=== PATIENT | male | born 1980 | race Caucasian/White ===

== ENCOUNTER 2020-01-13 09:01 | Emergency (ER) | payer MEDICARE, MEDICAID, SELFPAY ==
--- NOTE | 2020-01-13 | XR_ITS ---
EXAMINATION: XR TOES, RIGHT CLINICAL INFORMATION: Right fourth toe pain status-post injury. COMPARISON: None TECHNIQUE: Frontal, oblique and lateral views of the right toes were obtained. FINDINGS: Bony alignment and mineralization are normal. There is a small avulsion fragment arising from the dorsal medial aspect of the base of the fourth distal phalanx. There is mild associated soft tissue swelling. No soft tissue gas or foreign body is seen. IMPRESSION: A small avulsion fracture is seen arising from the dorsal medial aspect of the right fourth toe distal phalanx. There is mild associated soft tissue swelling.
[2020-01-13 09:29] VITALS: BP 134/71; PULSE 82; RESP 16; TEMP 36.6; O2SAT 98; BMI 25.1
--- NOTE | 2020-01-13 09:38 | ED_ITS ---
HPI - Extremity Injury (Lower) General Chief Complaint: Extremity Injury, Lower Stated Complaint: R FOOT PAIN s/p kicked pole while playing [employer] Do Time Seen by Provider: 01/13/20 09:36 Source: patient, RN notes reviewed and old records reviewed Mode of arrival: ambulatory Limitations: no limitations and other History of Present Illness Onset (ago): day(s) (2) Injury: Right: foot (r 4th toe) Type of Injury: blunt Place: home Severity: moderate Severity scale (1-10): 6 Relieving factors: nothing Exacerbating factors: weight bearing, movement and palpation Context: direct blow Associated symptoms: swelling and able to partially bear weight Other symptoms: none Related Data Previous Rx's Medication Instructions Recorded ibuprofen 800 mg PO Q8H PRN #14 tab 01/13/20 Allergies Allergy/AdvReac Type Severity Reaction Status Date / Time No Known Allergies Allergy Verified 01/13/20 09:56 Review of Systems Review of Systems: Yes all other systems are reviewed and are negative Constitutional: Constitutional: Reports as per HPI Eyes: Eyes: Reports as per HPI ENT: Reports as per HPI Cardiovascular: Cardiovascular: Reports as per HPI Respiratory: Respiratory: Reports as per HPI Gastrointestinal: Gastrointestinal: Reports as per HPI Genitourinary: Genitourinary: Reports as per HPI Musculoskeletal: Musculoskeletal: Reports abnormal gait (limp c r foot due to pain), Denies deformity, Reports joint swelling (r 4th toe ), Denies loss of height, Denies muscle weakness, Denies numbness, Denies radiating pain into limb and Denies tingling Integumentary/Breasts: Skin/Breast: Reports as per HPI Neurologic: Reports as per HPI, Denies numbness and Denies tingling Psychiatric: Psychiatric: Reports as per HPI Endocrine: Endocrine: Reports as per HPI Hematologic/Lymphatic: Hematologic/Lymphatic: Reports as per HPI Allergic/Immunologic: Allergic/Immunologic: Reports as per HPI PMF Past Medical History Medical History (Updated 01/13/20 @ 12:58 by LEILA Fiore) No known health problems Surgical History (Updated 01/13/20 @ 10:34 by LEILA Fiore) History of thumb surgery Social History Social History Alcohol intake: never Smoking Status: Current every day smoker Use of substances other than those prescribed or required for medical reasons: No Advance Directives: No Advance Directives Information Provided: No Physical Exam Vital Signs and I&O and Narrative: Vital Signs and I&O: Vital Signs Temp 97.8 F 01/13/20 09:29 Pulse 82 01/13/20 09:29 Resp 16 01/13/20 09:29 BP 134/71 01/13/20 09:29 Pulse Ox 98 01/13/20 09:29 Intake & Output 01/12/20 01/13/20 01/13/20 18:59 06:59 18:59 Weight 77.111 kg Body Mass Index 25.1 Const: General: cooperative, healthy appearing, no acute distress, alert, awake and Physically active Nutritional Appearance: average body habitus Orientation/consciousness: patient oriented x3 Limitations: no limitations HENMT: Head: Yes normal to inspection General nose exam: Normal external nose present Face and sinus: Yes normal facial exam Mouth: Normal oral and palatal mucosa present and moist mucous membranes Eyes: General: appearance normal, both eyes and all related structures Visual Peña: normal visual peña by confrontation Alignment and Position: alignment normal Pupils: Pupils normal by confrontation EOM: EOMs intact bilaterally Neck: Neck: Yes normal visual inspection, Yes full ROM and Yes supple Resp: Effort & Inspection: normal respiratory effort Cardio: Rate: regular rate Rhythm: regular rhythm Heart sounds: S1 normal heart sound present and S2 normal heart sound present Peripheral pulses: Peripheral pulses 2+ throughout Skin: General skin exam: no rashes or lesions noted, elasticity normal and turgor normal Neuro: General: patient oriented x3, moves all extremities, no focal motor deficits and normal sensation to monofilament Extrem: General: Yes normal to inspection, Yes full ROM, Yes capillary refill normal, Yes normal exam except as noted, No no joint enlargement, No no clubbing, cyanosis or edema, No no pedal edema, No no calf tenderness and Yes Limp noted (due to pain to r 4th toe) Right lower extremity: foot Details: normal capillary refill, abnormal to inspection, tenderness Location: of the dorsal foot, toes with normal ROM, ecchymosis dorsal 4th toe Details: single, vascular exam, tendon exam Details: active flexion normal and active extension normal, motor-sensory exam Details: two point discrimination normal Location: in all toes and other; no unusual warmth, edema noted, no abrasion, no laceration, no foreign bodies and no puncture wound MDM - Extremity Injury (Lower) Differential Diagnosis Differential diagnosis: Likely fracture of toe (fracture vs sprain of r 4th toe) Medical Records Attestation: I reviewed the patient's medical records. Imaging Data toe xray: My impression: pt does not want to wait for formal Xray reading on my impression pt does not have any fractures or dislocations Radiologist's impression: X-ray of right toe 4th digit returned at this time at 12:51 and revealed that the patient does have a small avulsion fracture arising from the dorsal medial aspect of the right 4th toe distal phalanx. Mild associated soft tissue swelling.Pt called and informed at this time he understands. Discharge Plan Discharge Clinical Impression: Fracture of toe Qualifiers: Encounter type: initial encounter Toe: lesser toe Fracture type: closed Phalanx: distal Laterality: right Patient Disposition: Home, Self-Care Instructions: Foot Fracture in Adults (ED) Prescriptions: New ibuprofen 800 mg tablet 800 mg PO Q8H PRN (Reason: pain) Qty: 14 RF: 0 Referrals: Mary Stiles MD [Physician] - 2 weeks Stand Alone Forms: Work/School Release Interventions: ED Discharge Assessment Last Done: 01/13/20 12:05 Discharge Date/Time: 01/13/20 12:11 Print Language: Pakistani
--- NOTE | 2020-01-13 10:16 | PC.NURSE ---
right foot elevated, awaiting xray results, +pp
--- NOTE | 2020-01-13 11:25 | PC.NURSE ---
call placed to dangelo nguyen dater assembler requesting reading, awaiting resolution
== END 2020-01-13 12:11 | disposition home or self-care (01) ==
PROVIDERS: Emergency Provider Emergency Medicine; PCP Internal Medicine
DX: S92.531A Displaced fracture of distal phalanx of right lesser toe(s), initial encounter for closed fracture (principal); W22.09XA Striking against other stationary object, initial encounter; Y93.75 Activity, martial arts; Y92.89 Other specified places as the place of occurrence of the external cause; Y99.8 Other external cause status
CPT/HCPCS: 73660; 99283; 99284

== ENCOUNTER 2020-04-20 11:55 | Outpatient (REF) | payer MEDICAID, SELFPAY | END 2020-04-20 11:56 | disposition home or self-care (01) | LOC: HO.LAB 11:55 | PROVIDERS: Visit Provider Internal Medicine | DX: Z20.828 Contact with and (suspected) exposure to other viral communicable diseases (principal) | CPT/HCPCS: 36415; C9803; U0003 ==

== ENCOUNTER 2020-07-25 10:25 | Emergency (ER) | payer MEDICAID, MEDICARE, SELFPAY | END 2020-07-25 11:51 | disposition left against medical advice (07) | PROVIDERS: Emergency Provider Emergency Medicine; PCP Internal Medicine | DX: M25.569 Pain in unspecified knee (principal) ==

== ENCOUNTER → 2023-09-22 10:22 | Outpatient (BNVA) | payer SELFPAY | PROVIDERS: PCP Internal Medicine; Visit Provider Physician Assistant Medical | DX: Z02.79 Encounter for issue of other medical certificate (principal) ==